=== PATIENT | female | born 1945 | race Caucasian/White ===

== ENCOUNTER 2022-02-26 13:18 | Observation (INO) ==
[2022-02-26] MEDS ORDERED: Naloxone 0.4 MG/ML INJ IVP PRN (15:46)
[2022-02-26] MEDS ORDERED: Ondansetron 4 MG/2 ML VIAL IVP PRN (15:46)
[2022-02-26 16:40] LABS: Prothrombin Time 10.7 Seconds (9.4-12.1)
[2022-02-26] MEDS ORDERED: 0.9 % Sodium Chloride 1,000 ML IVC SCH (16:40)
[2022-02-26 16:43] LABS: Activated Partial Thrombo Time 31.9 Seconds (26.0-36.0)
[2022-02-26] MEDS: MetroNIDAZOLE 500 MG/100 ML 500 MG/100 ML BAG IVPB SCH ×2 (16:44→23:28)
[2022-02-26] MEDS: levoFLOXacin 750 MG/150 ML 750 MG/150 ML BAG IVPB SCH (16:44)
[2022-02-26] MEDS: MethylPREDNISolone 40 MG/ML VIAL IVP SCH (17:21)
[2022-02-26] MEDS: *HR* Heparin 5,000 UNIT/ML VIAL SQ SCH (17:21)
[2022-02-26 17:54] LABS: Adenovirus Not Detected (Not Detect); Bordetella Pertussis Not Detected (Not Detect); Chlamydophila pneumoniae Not Detected (Not Detect); Coronavirus 229E Not Detected (Not Detect); Coronavirus HKU1 Not Detected (Not Detect); Coronavirus NL63 Not Detected (Not Detect); Coronavirus OC43 Not Detected (Not Detect); Human Metapneumovirus Not Detected (Not Detect); Human Rhinovirus/Enterovirus Not Detected (Not Detect); Influenza B Not Detected (Not Detect); Mycoplasma pneumoniae Not Detected (Not Detect); Parainfluenza Virus 1 Not Detected (Not Detect); Parainfluenza Virus 2 Not Detected (Not Detect); Parainfluenza Virus 3 Not Detected (Not Detect); Parainfluenza Virus 4 Not Detected (Not Detect); Respiratory Syncytial Virus Not Detected (Not Detect); SARS-CoV-2 Not Detected (Not Detect)
[2022-02-26 17:55] LABS: Influenza A Subtype 2009 H1 Not Detected (Not Detect)
[2022-02-26] MEDS: Acetaminophen 325 MG TABLET PO PRN (19:50)
[2022-02-26] MEDS: Ipratropium/Albuterol Neb 3 ML IH SCH ×3 (20:25→20:32)
[2022-02-27 01:52] LABS: Basophils % 0.2 %; Hematocrit 37.9 % (35.3-44.9); Hemoglobin 12.2 g/dL (11.5-15.4); Immature Granulocytes % 0.2 % (0-4); Lymphocytes # 0.6 K/mcL (0.6-4.6); Lymphocytes % 13.3 %; Mean Corpuscular HGB Conc 32.2 g/dL (31.6-35.5); Mean Corpuscular Hemoglobin 29.2 pg (28.0-33.3); Mean Corpuscular Volume 90.7 fL (83.0-100.0); Mean Platelet Volume 10.2 fL (9.4-12.4); Monocytes # 0.1 K/mcL (0.0-1.3); Monocytes % 1.9 %; Neutrophils # 4.1 K/mcL (1.6-8.9); Platelet Count 177 K/mcL (140-400); Red Blood Count 4.18 M/mcL (3.82-4.97); Red Cell Distribution Width 15.6 % (11.5-14.5); Segmented Neutrophils % 84.4 %; White Blood Count 4.8 K/mcL (4.3-11.1)
[2022-02-27 02:11] LABS: Platelet Estimate Normal (Normal)
[2022-02-27 02:18] LABS: Alanine Aminotransferase 8 Units/L (7-52); Albumin 3.5 g/dL (3.5-5.7); Alkaline Phosphatase 69 Units/L (34-104); Aspartate Amino Transferase 15 Units/L (13-39); BUN/Creatinine Ratio 20 (6-26); Bilirubin,Total 0.3 mg/dL (0.3-1.0); Blood Urea Nitrogen 15 mg/dL (8-23); Calcium 9.1 mg/dL (8.6-10.3); Carbon Dioxide 26 mEq/L (23-29); Chloride 102 mEq/L (98-107); Globulin 3.5 g/dL (2.4-3.5); Glucose 123 mg/dL (70-105); Osmolality,Calculated 286 (280-300); Potassium 3.8 mEq/L (3.5-5.1); Sodium 137 mEq/L (136-145); Troponin I < 0.03 ng/mL (< 0.04); eGFR For African Americans > 60 (> 60); eGFR For Non-African Americans > 60 (> 60)
[2022-02-27] MEDS: Ipratropium/Albuterol Neb 3 ML IH SCH ×2 (03:53→08:12)
[2022-02-27] MEDS: *HR* Heparin 5,000 UNIT/ML VIAL SQ SCH ×2 (05:13→17:01)
[2022-02-27] MEDS: MethylPREDNISolone 40 MG/ML VIAL IVP SCH ×2 (05:13→17:01)
[2022-02-27] MEDS: Pantoprazole 40 MG VIAL IVP SCH (07:52)
[2022-02-27] MEDS: MetroNIDAZOLE 500 MG/100 ML 500 MG/100 ML BAG IVPB SCH ×3 (07:52→23:32)
[2022-02-27] MEDS: Levalbuterol Neb 0.63 MG/3 ML IH SCH ×3 (11:02→20:17)
[2022-02-27] MEDS: Aspirin Enteric Coated 81 MG Tablet PO SCH (14:31)
[2022-02-27] MEDS: Metoprolol XL (24 HR) Succ 25 MG TAB.ER.24H PO SCH (14:31)
[2022-02-27] MEDS: Acetaminophen 325 MG TABLET PO PRN (14:42)
[2022-02-27] MEDS ORDERED: Nicotine 21 MG PATCH.TD24 TD PRN (15:29)
[2022-02-28] MEDS: Levalbuterol Neb 0.63 MG/3 ML IH SCH ×4 (03:35→20:17)
[2022-02-28] MEDS: MethylPREDNISolone 40 MG/ML VIAL IVP SCH (05:26)
[2022-02-28] MEDS: *HR* Heparin 5,000 UNIT/ML VIAL SQ SCH ×2 (05:26→17:07)
[2022-02-28] MEDS: Acetaminophen 325 MG TABLET PO PRN (06:24)
[2022-02-28 07:55] LABS: Basophils % 0.2 %; Hematocrit 35.3 % (35.3-44.9); Hemoglobin 11.6 g/dL (11.5-15.4); Immature Granulocytes % 0.3 % (0-4); Lymphocytes # 0.7 K/mcL (0.6-4.6); Lymphocytes % 10.6 %; Mean Corpuscular HGB Conc 32.9 g/dL (31.6-35.5); Mean Corpuscular Hemoglobin 29.7 pg (28.0-33.3); Mean Corpuscular Volume 90.5 fL (83.0-100.0); Mean Platelet Volume 9.9 fL (9.4-12.4); Monocytes # 0.3 K/mcL (0.0-1.3); Monocytes % 4.4 %; Neutrophils # 5.2 K/mcL (1.6-8.9); Platelet Count 197 K/mcL (140-400); Red Cell Distribution Width 15.2 % (11.5-14.5); Segmented Neutrophils % 84.5 %; White Blood Count 6.1 K/mcL (4.3-11.1)
[2022-02-28 07:57] LABS: Alanine Aminotransferase 13 Units/L (7-52); Albumin 3.6 g/dL (3.5-5.7); Albumin/Globulin Ratio 1.2 (1.1-2.2); Alkaline Phosphatase 74 Units/L (34-104); Aspartate Amino Transferase 28 Units/L (13-39); BUN/Creatinine Ratio 26 (6-26); Bilirubin,Total 0.4 mg/dL (0.3-1.0); Blood Urea Nitrogen 20 mg/dL (8-23); Calcium 9.3 mg/dL (8.6-10.3); Carbon Dioxide 28 mEq/L (23-29); Chloride 103 mEq/L (98-107); Globulin 3.1 g/dL (2.4-3.5); Glucose 111 mg/dL (70-105); Osmolality,Calculated 291 (280-300); Sodium 139 mEq/L (136-145); Total Protein 6.7 g/dL (6.4-8.9); eGFR For African Americans > 60 (> 60); eGFR For Non-African Americans > 60 (> 60)
[2022-02-28] MEDS: Pantoprazole 40 MG VIAL IVP SCH (08:11)
[2022-02-28] MEDS: Aspirin Enteric Coated 81 MG Tablet PO SCH (08:12)
[2022-02-28] MEDS: Metoprolol XL (24 HR) Succ 25 MG TAB.ER.24H PO SCH (08:12)
[2022-02-28] MEDS: MetroNIDAZOLE 500 MG/100 ML 500 MG/100 ML BAG IVPB SCH ×2 (08:12→15:06)
[2022-02-28] MEDS: levoFLOXacin 750 MG/150 ML 750 MG/150 ML BAG IVPB SCH (15:07)
[2022-03-01] MEDS: MetroNIDAZOLE 500 MG/100 ML 500 MG/100 ML BAG IVPB SCH ×2 (01:12→08:31)
[2022-03-01] MEDS: *HR* Heparin 5,000 UNIT/ML VIAL SQ SCH (05:40)
[2022-03-01] MEDS: Levalbuterol Neb 0.63 MG/3 ML IH SCH (07:25)
[2022-03-01 08:02] VITALS: BP 157/67; PULSE 74; TEMP 97.7; O2SAT 93
[2022-03-01 08:02] LABS: Alanine Aminotransferase 18 Units/L (7-52); Albumin 3.4 g/dL (3.5-5.7); Albumin/Globulin Ratio 1.1 (1.1-2.2); Alkaline Phosphatase 69 Units/L (34-104); Aspartate Amino Transferase 33 Units/L (13-39); BUN/Creatinine Ratio 30 (6-26); Bilirubin,Total 0.4 mg/dL (0.3-1.0); Blood Urea Nitrogen 28 mg/dL (8-23); Calcium 8.9 mg/dL (8.6-10.3); Carbon Dioxide 28 mEq/L (23-29); Chloride 103 mEq/L (98-107); Glucose 82 mg/dL (70-105); Osmolality,Calculated 293 (280-300); Potassium 3.8 mEq/L (3.5-5.1); Sodium 139 mEq/L (136-145); Total Protein 6.4 g/dL (6.4-8.9); eGFR For African Americans > 60 (> 60); eGFR For Non-African Americans 58 (> 60)
[2022-03-01 08:12] LABS: Basophils % 0.1 %; Eosinophils % 0.1 %; Hematocrit 37.8 % (35.3-44.9); Hemoglobin 12.2 g/dL (11.5-15.4); Immature Granulocytes % 0.6 % (0-4); Lymphocytes # 1.5 K/mcL (0.6-4.6); Lymphocytes % 21.9 %; Mean Corpuscular HGB Conc 32.3 g/dL (31.6-35.5); Mean Corpuscular Hemoglobin 29.6 pg (28.0-33.3); Mean Corpuscular Volume 91.7 fL (83.0-100.0); Mean Platelet Volume 10.1 fL (9.4-12.4); Monocytes # 0.5 K/mcL (0.0-1.3); Monocytes % 7.2 %; Neutrophils # 4.9 K/mcL (1.6-8.9); Platelet Count 231 K/mcL (140-400); Red Blood Count 4.12 M/mcL (3.82-4.97); Red Cell Distribution Width 15.5 % (11.5-14.5); Segmented Neutrophils % 70.1 %
[2022-03-01] MEDS: Metoprolol XL (24 HR) Succ 25 MG TAB.ER.24H PO SCH (08:30)
[2022-03-01] MEDS: Aspirin Enteric Coated 81 MG Tablet PO SCH (08:30)
[2022-03-01] MEDS: Pantoprazole 40 MG VIAL IVP SCH (08:31)
[2022-03-01] MEDS ORDERED: predniSONE 20 MG TABLET PO SCH (09:00)
== END 2022-03-01 09:44 | disposition home or self-care (01) ==
LOC: 3ANU → SUATTDRO 14:41
PROVIDERS: ADMIT Internal Medicine; ATTEND Internal Medicine

== ENCOUNTER 2022-08-16 13:57 | Inpatient (IN) ==
[2022-08-16] MEDS ORDERED: Naloxone 0.4 MG/ML INJ IVP PRN (16:32)
[2022-08-16] MEDS ORDERED: *HR* Heparin 5,000 UNIT/ML VIAL IVP ONE (16:37)
[2022-08-16] MEDS ORDERED: *HR* Heparin 5,000 UNIT/ML VIAL IVP PRN ×2 (16:37)
[2022-08-16] MEDS ORDERED: Heparin 25,000UNIT/250ML 1/2NS 25,000 UNIT/250 ML IV.SOLN IVC SCH ×2 (16:45→18:03)
[2022-08-16] MEDS ORDERED: Ipratropium/Albuterol Neb 3 ML IH PRN (17:34)
[2022-08-16] MEDS: Acetaminophen 325 MG TABLET PO PRN (18:38)
[2022-08-16 19:48] LABS: Adenovirus Not Detected (Not Detect); Bordetella Pertussis Not Detected (Not Detect); Chlamydophila pneumoniae Not Detected (Not Detect); Coronavirus 229E Not Detected (Not Detect); Coronavirus HKU1 Not Detected (Not Detect); Coronavirus NL63 Not Detected (Not Detect); Coronavirus OC43 Not Detected (Not Detect); Human Metapneumovirus Not Detected (Not Detect); Human Rhinovirus/Enterovirus Not Detected (Not Detect); Influenza A Subtype 2009 H1 Not Detected (Not Detect); Influenza B Not Detected (Not Detect); Mycoplasma pneumoniae Not Detected (Not Detect); Parainfluenza Virus 1 Not Detected (Not Detect); Parainfluenza Virus 2 Not Detected (Not Detect); Parainfluenza Virus 3 Not Detected (Not Detect); Parainfluenza Virus 4 Not Detected (Not Detect); Respiratory Syncytial Virus Not Detected (Not Detect); SARS-CoV-2 Not Detected (Not Detect)
[2022-08-16] MEDS: Melatonin 3 MG TABLET PO PRN (22:35)
[2022-08-16] MEDS: Furosemide 40 MG/4 ML VIAL IVP SCH (22:35)
[2022-08-17 01:17] LABS: Bilirubin,Urine Negative (Negative); Blood,Urine Negative (Negative); Clarity,Urine Clear (Clear); Color,Urine Colorless (Yellow); Glucose,Urine (UA) Normal (Normal); Ketones,Urine Negative (Negative); Leukocyte Esterase,Urine Negative (Negative); Nitrite,Urine Negative (Negative); Protein,Urine Negative (Neg-Trace); Urobilinogen,Urine Normal (Normal)
[2022-08-17] MEDS: Acetaminophen 325 MG TABLET PO PRN ×2 (01:30→17:08)
[2022-08-17 05:57] LABS: Hematocrit 35.2 % (35.3-44.9); Hemoglobin 10.7 g/dL (11.5-15.4); Mean Corpuscular HGB Conc 30.4 g/dL (31.6-35.5); Mean Corpuscular Hemoglobin 29.7 pg (28.0-33.3); Mean Corpuscular Volume 97.8 fL (83.0-100.0); Mean Platelet Volume 10.2 fL (9.4-12.4); Platelet Count 237 K/mcL (140-400); Red Cell Distribution Width 14.3 % (11.5-14.5); White Blood Count 11.5 K/mcL (4.3-11.1)
[2022-08-17 06:20] LABS: Calcium 8.9 mg/dL (8.6-10.3); Potassium 4.2 mEq/L (3.5-5.1)
[2022-08-17] MEDS ORDERED: Cyanocobalamin (B-12) 1,000 MCG/ML VIAL SQ ONE (07:57)
[2022-08-17] MEDS: Furosemide 40 MG/4 ML VIAL IVP SCH (09:37)
[2022-08-17 10:21] LABS: VBG HCO3 36 mEq/L (21-27); VBG PCO2 70 mmHg (41-51); VBG PH 7.32 pH Units (7.32-7.42); VBG PO2 173 mmHg (25-50)
[2022-08-17] MEDS ORDERED: Apixaban 5 MG TABLET PO SCH (10:45)
[2022-08-17] MEDS ORDERED: Metoprolol XL (24 HR) Succ 25 MG TAB.ER.24H PO SCH (15:00)
[2022-08-17] MEDS: Furosemide 20 MG/2 ML VIAL IVP SCH (17:05)
[2022-08-17] MEDS: Metoprolol XL (24 HR) Succ 25 MG TAB.ER.24H PO SCH (17:05)
[2022-08-17 19:16] LABS: Hemoglobin 11.1 g/dL (11.5-15.4); Mean Platelet Volume 10.1 fL (9.4-12.4); Platelet Count 230 K/mcL (140-400); Red Cell Distribution Width 14.4 % (11.5-14.5); White Blood Count 8.9 K/mcL (4.3-11.1)
[2022-08-17 19:22] LABS: INR 1.2; Prothrombin Time 13.8 Seconds (9.4-12.1)
[2022-08-17 19:25] LABS: Activated Partial Thrombo Time 32.1 Seconds (26.0-36.0)
[2022-08-17] MEDS ORDERED: *HR* Heparin 5,000 UNIT/ML VIAL IVP ONE (21:00)
[2022-08-17] MEDS ORDERED: *HR* Heparin 5,000 UNIT/ML VIAL IVP PRN (21:00)
[2022-08-17] MEDS ORDERED: Heparin 25,000UNIT/250ML 1/2NS 25,000 UNIT/250 ML IV.SOLN IVC SCH (21:00)
[2022-08-17] MEDS ORDERED: hydrOXYzine pamoate 25 MG CAPSULE PO PRN (21:39)
[2022-08-17] MEDS: Melatonin 3 MG TABLET PO PRN (22:33)
[2022-08-18] MEDS: Acetaminophen 325 MG TABLET PO PRN (00:55)
[2022-08-18 05:00] LABS: Hematocrit 33.3 % (35.3-44.9); Hemoglobin 9.8 g/dL (11.5-15.4); Mean Corpuscular HGB Conc 29.4 g/dL (31.6-35.5); Mean Corpuscular Hemoglobin 29.4 pg (28.0-33.3); Platelet Count 206 K/mcL (140-400); Red Blood Count 3.33 M/mcL (3.82-4.97); Red Cell Distribution Width 14.5 % (11.5-14.5); White Blood Count 8.5 K/mcL (4.3-11.1)
[2022-08-18 05:27] LABS: BUN/Creatinine Ratio 33 (6-26); Blood Urea Nitrogen 24 mg/dL (8-23); Calcium 8.9 mg/dL (8.6-10.3); Carbon Dioxide > 45 mEq/L (23-29); Chloride 96 mEq/L (98-107); Glucose 104 mg/dL (70-105); Magnesium 1.9 mg/dL (1.6-2.6); Osmolality,Calculated 302 (280-300); Potassium 3.7 mEq/L (3.5-5.1); Sodium 144 mEq/L (136-145)
[2022-08-18] MEDS: Metoprolol XL (24 HR) Succ 25 MG TAB.ER.24H PO SCH (08:19)
[2022-08-18] MEDS: Aspirin Enteric Coated 81 MG Tablet PO SCH (08:19)
[2022-08-18] MEDS: Cyanocobalamin (B-12) 1,000 MCG TABLET PO SCH (08:19)
[2022-08-18] MEDS: Furosemide 20 MG/2 ML VIAL IVP SCH ×2 (08:20→17:50)
[2022-08-18] MEDS ORDERED: Heparin 25,000UNIT/250ML 1/2NS 25,000 UNIT/250 ML IV.SOLN IVC SCH (10:29)
[2022-08-18] MEDS ORDERED: Potassium Chloride Elixir 20 MEQ/15 ML UDC PO ONE (11:52)
[2022-08-18] MEDS: *HR* Heparin 5,000 UNIT/ML VIAL IVP PRN ×2 (15:55→23:55)
[2022-08-18] MEDS: lisinopriL 5 MG TABLET PO SCH (15:56)
[2022-08-18] MEDS: Heparin 25,000UNIT/250ML 1/2NS 25,000 UNIT/250 ML IV.SOLN IVC SCH (15:58)
[2022-08-18 16:00] LABS: ABG Base Excess 15 mEq/L (-2 to 3); ABG HCO3 45 mEq/L (21-27); ABG Oxygen Saturation 92 % (95-98); ABG PCO2 89 mmHg (35-45); ABG PH 7.32 pH Units (7.32-7.45); ABG PO2 73 mmHg (85-104); ABG TCO2 48 mEq/L (20-26)
[2022-08-18] MEDS: *HR* Digoxin 0.5 MG/2 ML AMPUL IVP SCH ×2 (17:50→23:56)
[2022-08-18] MEDS ORDERED: Haloperidol Lactate 5 MG/ML VIAL IVP ONE (18:26)
[2022-08-18] MEDS ORDERED: *HR* LORazepam 2 MG/ML VIAL IVP ONE (22:02)
[2022-08-19 05:15] LABS: VBG HCO3 41 mEq/L (21-27); VBG PCO2 81 mmHg (41-51); VBG PH 7.32 pH Units (7.32-7.42); VBG PO2 38 mmHg (25-50)
[2022-08-19 05:18] LABS: Hematocrit 36.2 % (35.3-44.9); Hemoglobin 10.9 g/dL (11.5-15.4); Mean Corpuscular HGB Conc 30.1 g/dL (31.6-35.5); Mean Corpuscular Hemoglobin 30.1 pg (28.0-33.3); Mean Platelet Volume 10.5 fL (9.4-12.4); Platelet Count 212 K/mcL (140-400); Red Blood Count 3.62 M/mcL (3.82-4.97); Red Cell Distribution Width 14.7 % (11.5-14.5); White Blood Count 10.3 K/mcL (4.3-11.1)
[2022-08-19 05:56] LABS: % Iron Saturation 3 % (15-50); BUN/Creatinine Ratio 33 (6-26); Blood Urea Nitrogen 27 mg/dL (8-23); Calcium 10.1 mg/dL (8.6-10.3); Carbon Dioxide > 45 mEq/L (23-29); Chloride 94 mEq/L (98-107); Ferritin 51 ng/mL (10-120); Glucose 103 mg/dL (70-105); Iron 12 mcg/dL (50-170); Magnesium 1.9 mg/dL (1.6-2.6); Osmolality,Calculated 305 (280-300); Phosphorous 3.2 mg/dL (2.7-4.5); Potassium 4.1 mEq/L (3.5-5.1); Sodium 145 mEq/L (136-145); Transferrin 337 mg/dL (203-362)
[2022-08-19] MEDS: Heparin 25,000UNIT/250ML 1/2NS 25,000 UNIT/250 ML IV.SOLN IVC SCH (06:03)
[2022-08-19] MEDS ORDERED: *HR* LORazepam 2 MG/ML VIAL IVP ONE (07:01)
[2022-08-19 07:10] VITALS: BP 120/93; PULSE 102; TEMP 98.4; O2SAT 96
[2022-08-19] MEDS: *HR* Heparin 5,000 UNIT/ML VIAL IVP PRN (07:26)
[2022-08-19] MEDS: Aspirin Enteric Coated 81 MG Tablet PO SCH (08:09)
[2022-08-19] MEDS: lisinopriL 5 MG TABLET PO SCH (08:09)
[2022-08-19] MEDS: Metoprolol XL (24 HR) Succ 25 MG TAB.ER.24H PO SCH (08:09)
[2022-08-19] MEDS: Furosemide 20 MG/2 ML VIAL IVP SCH (08:09)
[2022-08-19] MEDS: Cyanocobalamin (B-12) 1,000 MCG TABLET PO SCH (08:09)
[2022-08-19] MEDS ORDERED: Morphine Sulfate 2 MG/ML SYRINGE IVP PRN (09:11)
[2022-08-19] MEDS ORDERED: *HR* LORazepam 2 MG/ML VIAL IVP PRN (09:11)
[2022-08-19] MEDS ORDERED: Glycopyrrolate 0.2 MG/ML VIAL IVP PRN (09:14)
[2022-08-19] MEDS ORDERED: Scopolamine Patch 1.5 MG PATCH.TD72 TD SCH (09:15)
[2022-08-19] MEDS ORDERED: Metoprolol XL (24 HR) Succ 50 MG TAB.ER.24H PO SCH (09:41)
[2022-08-19] MEDS ORDERED: *HR* Digoxin 0.125 MG TABLET PO SCH (09:45)
== END 2022-08-19 12:05 | disposition expired | DRG 175 ==
LOC: 3NENU → SUATTDRO 08-18 10:19
PROVIDERS: ADMIT Hospitalist; ATTEND Internal Medicine